=== PATIENT | female | born 1940 | race Two or more races ===

== ENCOUNTER 2017-01-24 20:47 | Emergency (ER) | payer MEDICARE, OTHER ==
[~2017-01-24] VITALS: Ht 160 cm; Wt 56.8 kg
[2017-01-24] MEDS ORDERED: ONDANSETRON 4 MG INJ IV STA (21:24)
[2017-01-24] MEDS ORDERED: SOD CHLORIDE 0.9% 1,000 ML IV STA (21:24)
[2017-01-24] MEDS ORDERED: HYDROmorphONE 1 MG/ML SYG IV STA (21:24)
[2017-01-24 22:06] VITALS: Ht 160 cm; Wt 56.8 kg
[2017-01-24 22:07] LABS: BASOPHILS % 0.6 % (0.0-2.0); HEMATOCRIT 37.3 % (37.0-47.0); HEMOGLOBIN 12.4 g/dl (12.0-16.0); MEAN CORPUSCULAR HEMOGLOBIN 30.7 pg (29.0-33.0); MEAN CORPUSCULAR HGB CONC 33.2 g/dl (32.0-37.0); MEAN CORPUSCULAR VOLUME 92.3 fl (82.0-101.0); MEAN PLATELET VOLUME 9.7 fl (7.4-10.4); MONOCYTE # 0.4 10^3/ul (0.3-0.9); MONOCYTES % 6.7 % (0.0-11.0); NEUTROPHIL # 4.1 10^3/ul (1.6-7.5); NEUTROPHILS % 62.4 % (39.0-77.0); PLATELET COUNT 300 10^3/UL (140-415); RED BLOOD COUNT 4.04 10^6/ul (4.20-5.40); RED CELL DISTRIBUTION WIDTH 12.4 % (11.5-14.5); WHITE BLOOD COUNT 6.6 10^3/ul (4.8-10.8)
[2017-01-24 22:29] LABS: ALBUMIN 4.6 g/dl (3.3-4.9); ALBUMIN/GLOBULIN RATIO 1.58; CALCIUM 9.7 mg/dl (8.4-10.2); CREATININE 0.72 mg/dl (0.44-1.00); POTASSIUM 3.8 mmol/L (3.5-5.1); TOTAL PROTEIN 7.5 g/dl (6.1-8.1)
--- NOTE | 2017-01-24 22:52 | ERD ---
ER Documentation Chief Complaint Date/Time DATE: 01/24/17 TIME: 22:50 Chief Complaint abdominal pain worse since yesterday HPI This is a 36-year-old female complains of day 2 of pain located in the right upper quadrant and right mid abdomen. She states that it is a crampy pain is sometimes sharp with some radiation to the right back. The patient has had her gallbladder removed and thinks she had her appendix out but is not sure. She has no nausea vomiting diarrhea fever. The pain is not really worse after eating but sometimes it will. No chest pain shortness of breath fevers diaphoresis jaw shoulder elbow pain ROS All systems reviewed and are negative except as per history of present illness. Medications Home Meds Active Scripts Polyethylene Glycol* (Miralax*) 17 Gm Powd.pack, 17 GM PO DAILY, #7 Prov:MARGARET MACIEL DO 01/25/17 Hydrocodone/Acetaminophen ([place] 5-325 Tablet) 1 Each Tablet, 1 TAB PO Q6H Y for PAIN, #7 TAB Prov:MARGARET MACIEL DO 01/25/17 Allergies Allergies: Coded Allergies: No Known Allergy (Unverified , 01/24/17) PMhx/Soc History of Surgery: Yes (gallbladder, appendectomy) Anesthesia Reaction: No Hx Neurological Disorder: No Hx Respiratory Disorders: No Hx Cardiac Disorders: Yes (HTN) Hx Psychiatric Problems: No Hx Miscellaneous Medical Probl: No Hx Alcohol Use: No Hx Substance Use: No Hx Tobacco Use: No Smoking Status: Never smoker FmHx Family History: No coronary disease Physical Exam Vitals Vital Signs Date Time Temp Pulse Resp B/P Pulse Ox O2 Delivery O2 Flow Rate FiO2 01/25/17 00:13 72 16 134/73 96 Room Air 01/24/17 22:06 98.7 78 12 155/84 96 Physical Exam Const: Well-developed, well-nourished Head: Atraumatic, normocephalic Eyes: Normal Conjunctiva, PERRLA, EOMI, normal sclera, no nystagmus ENT: Normal External Ears, Nose and Mouth, moist mucus membranes. Neck: Full range of motion. No meningismus, no lymphadenopathy. Resp: Clear to auscultation bilaterally, no wheezing, rhonchi, rales Cardio: Regular rate and rhythm, no murmurs, S1 S2 present Abd: Soft, mild to moderate tenderness the right upper quadrant and right mid abdomen, non distended. Normal bowel sounds, no guarding or rebound, no pulsitile abdominal masses or bruits Skin: No petechiae or rashes, no ecchymosis , no maculopapular rash Back: No midline or flank tenderness Ext: No cyanosis, or edema, FROM x 4, normal inspection, neurovascularly intact x 4 Neur: Awake and alert, STR 5/5 x 4, sensation intact x 4, no focal findings, cerebellum intact Psych: Normal Mood and Affect Result Diagram: 01/24/17214001/24/172140 Results 24 hrs Laboratory Tests Test 01/24/17 21:41 White Blood Count 6.610^3/ul Red Blood Count 4.0410^6/ul Hemoglobin 12.4g/dl Hematocrit 37.3% Mean Corpuscular Volume 92.3fl Mean Corpuscular Hemoglobin 30.7pg Mean Corpuscular Hemoglobin Concent 33.2g/dl Red Cell Distribution Width 12.4% Platelet Count 62032^3/UL Mean Platelet Volume 9.7fl Neutrophils % 62.4% Lymphocytes % 30.0% Monocytes % 6.7% Eosinophils % 0.0% Basophils % 0.6% Nucleated Red Blood Cells % 0.0/100WBC Neutrophils # 4.110^3/ul Lymphocytes # 2.010^3/ul Monocytes # 0.410^3/ul Eosinophils # 0.010^3/ul Basophils # 0.010^3/ul Nucleated Red Blood Cells # 0.010^3/ul Sodium Level 146mmol/L Potassium Level 3.8mmol/L Chloride Level 101mmol/L Carbon Dioxide Level 30mmol/L Anion Gap 19 Blood Urea Nitrogen 13mg/dl Creatinine 0.72mg/dl Glucose Level 115mg/dl Calcium Level 9.7mg/dl Total Bilirubin 0.0mg/dl Direct Bilirubin 0.00mg/dl Indirect Bilirubin 0.0mg/dl Aspartate Amino Transf (AST/SGOT) 20IU/L Alanine Aminotransferase (ALT/SGPT) 29IU/L Alkaline Phosphatase 62IU/L Total Protein 7.5g/dl Albumin 4.6g/dl Globulin 2.90g/dl Albumin/Globulin Ratio 1.58 Lipase 160U/L Current Medications Medications (Trade) Dose Ordered Sig/Deirdre Route PRN Reason Start Time Stop Time Status Last Admin Dose Admin Sodium Chloride (NS) 1,000 ml @ 1,000 mls/hr Q1H STAT IV 01/24/17 21:24 01/24/17 22:23 DC 01/24/17 21:45 Hydromorphone HCl (Dilaudid) 1 mg ONCE STAT IV 01/24/17 21:24 01/24/17 21:26 DC 01/24/17 21:45 Ondansetron HCl (Zofran Inj) 4 mg ONCE STAT IV 01/24/17 21:24 01/24/17 21:26 DC 01/24/17 21:45 IV Flush 10 ml 10 ml STK-MED ONCE .ROUTE 01/24/17 23:00 01/24/17 23:01 DC 01/24/17 23:11 Sodium Chloride (NS) 100 ml @ ud STK-MED ONCE .ROUTE 01/24/17 23:00 01/24/17 23:01 DC 01/24/17 23:11 Iohexol (Omnipaque 300mg/ ml) 150 ml STK-MED ONCE .ROUTE 01/24/17 23:00 01/24/17 23:01 DC 01/24/17 23:11 Procedures/MDM PROCEDURE: CT abdomen and pelvis with contrast. CLINICAL INDICATION: Abdominal pain TECHNIQUE: CT scan of the abdomen and pelvis with contrast was performed. Coronal and sagittal images were also reformatted. 80 cc Omnipaque-300 intravenous contrast was administered without complication. Total exam CTDIvol = 6.38 mGy and DLP = 351.87 mGy-cm. COMPARISON: None available. FINDINGS: Visualized lower thorax: Dependent bibasilar subsegmental atelectasis is present. The visualized heart is mildly enlarged. There is no evidence for pleural effusion. Liver, gallbladder, pancreas and spleen: Normal hepatic contour, attenuation in size. There is no evidence for liver mass or ductal dilatation. Findings are compatible with prior cholecystectomy. No common bile duct dilatation is evident. The pancreas is normal. The spleen is normal, not enlarged. Adrenal glands and genitourinary system: The adrenal glands are normal bilaterally. The kidneys are normal in size, contour and attenuation with no evidence for masses, calculi or hydronephrosis. Symmetric enhancement of the kidneys is present without evidence of pyelonephritis . The ureters are unremarkable. The urinary bladder shows no abnormality. Calcified uterine leiomyoma of the right fundus is approximately 3 cm with uterine atrophy. No ovarian or adnexal mass is present. Gastrointestinal system: Mild gastric wall thickening is equivocal for gastritis, the stomach normal in caliber There is no evidence of obstruction, ileus or inflammation. The appendix is not visible but there is no inflammation in the right lower quadrant to suggest appendicitis. Moderate amount of fecal debris in the colon cannot exclude constipation. There is no evidence of colitis or diverticulitis. Peritoneum, retroperitoneum, vessels and lymph nodes: The abdominal aorta is normal in caliber. There is moderate to severe aortic and iliac system atherosclerotic calcification. Inferior vena cava is normal in caliber. There is no evidence for adenopathy. The peritoneal cavity is normal with no evidence for ascites. Osseous structures and musculoskeletal system: There is no evidence for acute osseous abnormality or muscular pathology. Demineralization is noted with degenerative spondylosis and disk narrowing greatest at the right at the L4-5. No subcutaneous abnormalities are present. RPTAT:HJJR IMPRESSION: 1. Gastric wall thickening equivocal for gastritis. 2. Mild constipation pattern. 3. Leiomyomatous uterus. 4. Prior cholecystectomy. 5. Diffuse atherosclerotic calcification of the aorta and iliac system. 6. Cardiomegaly and bibasilar subsegmental atelectasis. Physician Caio Date Time Electronically viewed and signed by Physician Caio on 01/24/2017 23:30 / CC: MARGARET MACIEL DO PROCEDURE: ULTRASOUND LIMITED ABDOMEN CLINICAL INDICATION: 76-year-old female with abdominal pain. TECHNIQUE: Multiple sonographic of the right upper quadrant of the abdomen were obtained. The images were reviewed on a PACS workstation. COMPARISON: None. FINDINGS: The pancreas is partially visualized and is otherwise without abnormal echogenicity. The liver displays normal echogenicity. The liver measures 14.6 cm in length. No evidence of intrahepatic biliary ductal dilatation is seen. The portal and hepatic veins are unremarkable. The gallbladder is not visualized consistent with prior cholecystectomy. No pericholecystic fluid is seen. The common bile duct measures 2.9 mm and is not dilated. The right kidney displays normal echogenicity. The right kidney measures 8.4 cm in maximal length. No caliectasis or hydronephrosis is seen. No free fluid is seen. IMPRESSION: Status post cholecystectomy. .Jaime Balderas MD, MD Date Time Electronically viewed and signed by .Jaime Balderas MD, on 01/25/2017 01:39 .M/ CC: MARGARET MACIEL DO Patient has evidence of gastritis as well as constipation. I will treat her with a bowel movement medication. The patient is Matthias on a proton pump inhibitor I will have her double her dose for a week and then go back to normal doses. Also told her to add some a little very juice to help. Repair of the gastric lining Departure Diagnosis: Primary Impression: Gastritis Gastritis type: unspecified gastritis Chronicity: acute Gastritis bleeding : presence of bleeding unspecified Qualified Code: K29.00 - Acute gastritis, presence of bleeding unspecified, unspecified gastritis type Additional Impression: Constipation Constipation type: unspecified constipation type Qualified Code: K59.00 - Constipation, unspecified constipation type Condition: Stable MARGARET MACIEL DO Jan 24, 2017 22:52
[2017-01-24] MEDS ORDERED: SOD CHLORIDE 0.9% 100 ML ONE (23:00)
[2017-01-24] MEDS ORDERED: IOHEXOL 300MG/ML 150 ML BTL ONE (23:00)
--- NOTE | 2017-01-24 23:30 | RADRPT ---
PROCEDURE: CT abdomen and pelvis with contrast. CLINICAL INDICATION: Abdominal pain TECHNIQUE: CT scan of the abdomen and pelvis with contrast was performed. Coronal and sagittal im ages were also reformatted. 80 cc Omnipaque-300 intravenous contrast was administered without compl ication. Total exam CTDIvol = 6.38 mGy and DLP = 351.87 mGy-cm. COMPARISON: None available. FINDINGS: Visualized lower thorax: Dependent bibasilar subsegmental atelectasis is present. The visualized he art is mildly enlarged. There is no evidence for pleural effusion. Liver, gallbladder, pancreas and spleen: Normal hepatic contour, attenuation in size. There is no evidence for liver mass or ductal dilatation. Findings are compatible with prior cholecystectomy. No common bile duct dilatation is evident. The pancreas is normal. The spleen is normal, not enlar ged. Adrenal glands and genitourinary system: The adrenal glands are normal bilaterally. The kidneys ar e normal in size, contour and attenuation with no evidence for masses, calculi or hydronephrosis. Sy mmetric enhancement of the kidneys is present without evidence of pyelonephritis . The ureters are unremarkable. The urinary bladder shows no abnormality. Calcified uterine leiomyoma of the right f undus is approximately 3 cm with uterine atrophy. No ovarian or adnexal mass is present. Gastrointestinal system: Mild gastric wall thickening is equivocal for gastritis, the stomach bucky l in caliber There is no evidence of obstruction, ileus or inflammation. The appendix is not visib le but there is no inflammation in the right lower quadrant to suggest appendicitis. Moderate amount of fecal debris in the colon cannot exclude constipation. There is no evidence of colitis or diver ticulitis. Peritoneum, retroperitoneum, vessels and lymph nodes: The abdominal aorta is normal in caliber. Th ere is moderate to severe aortic and iliac system atherosclerotic calcification. Inferior vena cava is normal in caliber. There is no evidence for adenopathy. The peritoneal cavity is normal with n o evidence for ascites. Osseous structures and musculoskeletal system: There is no evidence for acute osseous abnormality o r muscular pathology. Demineralization is noted with degenerative spondylosis and disk narrowing gr eatest at the right at the L4-5. No subcutaneous abnormalities are present. RPTAT:HJJR IMPRESSION: 1. Gastric wall thickening equivocal for gastritis. 2. Mild constipation pattern. 3. Leiomyomatous uterus. 4. Prior cholecystectomy. 5. Diffuse atherosclerotic calcification of the aorta and iliac system. 6. Cardiomegaly and bibasilar subsegmental atelectasis. Mateo Sneed Physician Date Time Electronically viewed and signed by Mateo Sneed Physician on 01/24/2017 23:30 JR/
--- NOTE | 2017-01-25 01:39 | RADRPT ---
PROCEDURE: ULTRASOUND LIMITED ABDOMEN CLINICAL INDICATION: 76-year-old female with abdominal pain. TECHNIQUE: Multiple sonographic of the right upper quadrant of the abdomen were obtained. The imag es were reviewed on a PACS workstation. COMPARISON: None. FINDINGS: The pancreas is partially visualized and is otherwise without abnormal echogenicity. The liver displays normal echogenicity. The liver measures 14.6 cm in length. No evidence of intrah epatic biliary ductal dilatation is seen. The portal and hepatic veins are unremarkable. The gallbladder is not visualized consistent with prior cholecystectomy. No pericholecystic fluid i s seen. The common bile duct measures 2.9 mm and is not dilated. The right kidney displays normal echogenicity. The right kidney measures 8.4 cm in maximal length. N o caliectasis or hydronephrosis is seen. No free fluid is seen. IMPRESSION: Status post cholecystectomy. .Jaime Balderas MD, MD Date Time Electronically viewed and signed by .Jaime Balderas MD, on 01/25/2017 01:39 .M/
[2017-01-25] MEDS ORDERED: POLY17PO6 PO (02:07)
[2017-01-25] MEDS ORDERED: HYDR-906 PO (02:07)
[2017-01-25 02:31] VITALS: BP 154/82; PULSE 68; RESP 14; TEMP 98.1
== END 2017-01-25 02:35 | disposition home or self-care (01) ==
LOC: E/R 20:47
DX: K29.00 Acute gastritis without bleeding (principal); K59.00 Constipation, unspecified; I10 Essential (primary) hypertension
CPT/HCPCS: 36415; 74177; 76705; 80053; 83690; 85025; 96374; 96375; 99285; J1170; J2405; J7030; Q9967